=== PATIENT | male | born 1980 | race Caucasian/White ===

== ENCOUNTER 2017-04-25 06:42 | Emergency (ER) | payer BC ==
[~2017-04-25] VITALS: Ht 180.3 cm; Wt 127.0 kg
--- NOTE | ~2017-04-25 | CT4 ---
[facility] A Service of [facility] RADIOLOGY TEXT RESULTS PATIENT: BRANT ROGERS LOCATION: SED : [birth year] UNIT #: [id number] AGE: [address]: Ulysses Cox MD SEX: M ORDER DR: [id number] [place] [id number] E MR#: [id number] Acc #: [id number] NAME: BRANT ROGERS : 1980 SEX: M STUDY DATE/TIME: 04/25/2017 8:32 UNIT: SED ROOM: STUDY DESCRIPTION: CT Abd and Pelv Wo Cont Attending Physician: Ulysses Cox M.D. Ordering Physician: Dash Chang M.D. Primary Care Physician: Eden Seo M.D. MEDICAL IMAGING REPORT This report is preliminary unless electronic signature is present. EXAM Abdomen and pelvis CT without contrast. HISTORY Right flank pain starting at 03:00 a.m. History of stones. Also, history of chronic back pain. TECHNIQUE CT abdomen and pelvis performed without IV or oral contrast media using a urinary tract stone protocol. Lack of intravenous oral contrast media limits evaluation for pathology other than urinary tract calculus disease. This CT exam was performed with one or more of the following radiation dose reduction techniques: automatic exposure control, adjustment of mA and/or kV according to patient size, and iterative reconstruction. COMPARISON STUDIES Comparison study is from 08/12/2016. FINDINGS Evaluation lung bases shows small amount of dependent atelectasis. CT ABDOMEN: Unenhanced liver and gallbladder are unremarkable. Spleen and adrenal glands unremarkable. The pancreas is partially fatty replaced. There are postoperative changes to the stomach. Left kidney unremarkable without evidence for intrarenal calculus or hydronephrosis. Right kidney is mildly enlarged and there is perinephric stranding. There is moderate hydronephrosis and there is an obstructing calculus at the ureteropelvic junction. It measures about 5 mm in diameter. There is also non-obstructing calculus in the right kidney, about 6 mm diameter. This is located in the lower pole. [facility] A Service of [facility] RADIOLOGY TEXT RESULTS PATIENT: BRANT ROGERS LOCATION: SED : [birth year] UNIT #: [id number] AGE: [address]: Ulysses Cox MD SEX: M ORDER DR: Evaluation of the pelvis shows an unremarkable appearance to the urinary bladder. Visualized appendix is unremarkable. No free intraperitoneal air or obvious bowel obstruction. Noncontrast study is limited for pathology other than urinary tract calculus disease. I suspect there are some prominent lymph nodes in the mesentery and retroperitoneum but these are poorly evaluated without contrast and are nonspecific. Partly seen are prominent nodes in the groin area, largest on the left is 2 x 1.1 cm dimension, and clinical followup is suggested. Mild degenerative changes in the lower lumbar spine. IMPRESSION 1. There is an obstructing calculus seen at the right ureteropelvic junction, about 5 mm in dimension, with moderate right-sided hydronephrosis and stranding around the right kidney. There is a non-obstructing calculus in the right lower pole kidney, about 6 mm dimension. 2. Study is limited by lack of IV and oral contrast media. I suspect there is some nonspecific, prominent, possibly enlarged lymph nodes in the mesentery, retroperitoneal and inguinal region. Please correlate further clinically. This is best pursued with a contrast-enhanced study on a non-emergent basis. 3. Postoperative change of the stomach. Please correlate with history. Dictated by... Gillian Reese M.D. THIS IS AN ELECTRONICALLY VERIFIED REPORT Gillian Reese M.D. at 04/26/2017 3:51 PM SAC/pcl TD: 04/26/2017 12:59 JOB #: [id number] MEDICAL IMAGING REPORT Page 1 of 1
[~2017-04-25 06:42] MED LIST: ALLEGRA PO; ALLERGY SYR1 DIS.SYR IM; CLARITIN10 M3 PO; CLINDAMYCIN HC300 MG PO; DEPO-TESTOS200 MG/ML INJ; FLEXERIL10 M1 PO; MEDROL DOSEPAK4 MG PO; METHADONE HCL50 GM MC; METHADONE PO; NAPROSYN500 MG PO; NEURONTIN PO; ONDANSETRON ODT4 MG PO; OXYCODONE15 M1 PO; PHENTERMINE H37.5 M1 PO; PREDNISONE10 MG PO; ROBAXIN500 MG PO; VOLTAREN50 MG PO; WELLBUTRIN PO; ZOFRANODT SL; [UNRECOGNIZED DRUG - OTHER]
[2017-04-25] MEDS ORDERED: MULTI VITAMIN1 EACH (06:48)
[2017-04-25 07:49] LABS: BASOPHIL% 0.3 % (0-2.5); EOSINOPHIL# 0.1 X10e3 (0-0.7); EOSINOPHIL% 1.6 % (0.0-7.0); HEMATOCRIT 35.6 % (38.0-50.0); HEMOGLOBIN 11.7 gm/dL (13.0-16.0); LYMPHOCYTE# 1.5 X10e3 (1.0-3.5); LYMPHOCYTE% 17.5 % (17.0-45.0); MEAN CELL VOLUME 82.8 FL (83-96); MEAN CORPUSCULAR HEMOGLOBIN 27.3 PG (28-34); MEAN CORPUSCULAR HGB CONC 32.9 g/dL (30-36); MEAN PLATELET VOLUME 7.8 FL (6.5-11.5); MONOCYTE# 0.8 X10e3 (0-1.0); MONOCYTE% 9.5 % (3.0-12.0); NEUTROPHIL% 71.1 % (40-75); PLATELET COUNT 217 X10e3 (140-420); RED BLOOD COUNT 4.31 X10e (3.90-5.60); RED CELL DISTRIBUTION WIDTH 16.3 % (11.0-15.5); WHITE BLOOD COUNT 8.4 X10e3 (4.0-10.5)
[2017-04-25 07:51] LABS: DIFF IND NO
[2017-04-25 07:55] LABS: URINE SOURCE CLEAN CATCH
[2017-04-25 07:58] LABS: MICRO INDICATED? YES; URINE APPEARANCE CLEAR; URINE BILIRUBIN NEG (NEG); URINE BLOOD 3+ (NEG); URINE COLOR YELLOW; URINE GLUCOSE NEG (NORM); URINE KETONE NEG (NEG); URINE LEUKOCYTE ESTERASE NEG (NEG); URINE NITRATE NEG (NEG); URINE PH 6.5 (5-8); URINE PROTEIN NEG (NEG); URINE SPECIFIC GRAVITY 1.025 (1.003-1.035)
[2017-04-25 08:08] LABS: CULTURE INDICATED? NO; URINE BACTERIA NEG (NEG); URINE RBC 50-100 /[HPF] (0-2); URINE WBC 0-2 /[HPF] (0-5)
[2017-04-25 08:09] LABS: URINE CRYSTALS CALCIUM OXALATE /[HPF]; URINE MUCUS PRESENT
[2017-04-25 08:22] LABS: BILIRUBIN,TOTAL 0.7 mg/dL (0.2-2.0); CALCIUM SERUM 8.6 mg/dL (8.4-10.2); GLOM FILT RATE Estimated 95.7 mL/min (>60); POTASSIUM 3.4 mmol/L (3.5-5.1); PROTEIN TOTAL SERUM 6.8 g/dL (6.0-8.3)
== END 2017-04-25 10:00 | disposition home or self-care (01) ==
LOC: SED 06:42
DX: N13.2 Hydronephrosis with renal and ureteral calculous obstruction (principal); I10 Essential (primary) hypertension; Z79.899 Other long term (current) drug therapy
CPT/HCPCS: 36415; 74176; 80053; 81003; 85025; 96361; 96374; 96375; 99284; J1170; J1885; J2405

== ENCOUNTER 2017-05-30 09:53 | Emergency (ER) | payer BC ==
--- NOTE | ~2017-05-30 | CT4 ---
[facility] A Service of [facility] & [facility] RADIOLOGY TEXT RESULTS PATIENT: BRANT ROGERS LOCATION: SED : [birth year] UNIT #: [id number] AGE: [address]: Naila Navarrete MD SEX: M ORDER DR: [id number] [address] [id number] E MR#: [id number] Acc #: [id number] NAME: BRANT ROGERS : 1980 SEX: M STUDY DATE/TIME: 05/30/2017 10:51 UNIT: SED ROOM: STUDY DESCRIPTION: CT Abd and Pelv Wo Cont Attending Physician: Naila Navarrete M.D. Ordering Physician: Naila Navarrete M.D. Primary Care Physician: Eden Seo M.D. MEDICAL IMAGING REPORT This report is preliminary unless electronic signature is present. EXAM Abdomen and pelvis CT without contrast HISTORY Right-sided renal colic beginning early this morning. Recent passage of a kidney stone 1 week ago. Comparison examination 04/25/2017 TECHNIQUE Axial images were obtained without contrast. This CT exam was performed with one or more of the following radiation dose reduction techniques: automatic control, adjustment of mA and/or kV according to patient size, and iterative reconstruction. FINDINGS The liver, spleen and pancreas are normal in size. The left kidney remains normal. There is a nonobstructing 8 mm kidney stone in the lower pole of the robby of the right kidney unchanged from the previous scan. There is moderate right hydronephrosis and perinephric edema is seen on the right side. The right ureter is dilated into the mid pelvis where a 5 x 7 mm stone is noted. On the previous CT this stone was located in the upper ureter. IMPRESSION The upper ureteral stone seen on the previous scan of 04/25/2017 has moved to the level of the mid pelvis. There is moderate hydronephrosis and perinephric edema that appears similar to the previous scan in April. The stone has not passed completely and no bladder stones are seen. A nonobstructing lower pole kidney stone on the right is again noted and unchanged. Dictated by... Mike Serna M.D. [facility] A Service of [facility] RADIOLOGY TEXT RESULTS PATIENT: BRANT ROGERS LOCATION: [facility] [place] : [birth year] UNIT #: [id number] AGE: [address]: Naila Navarrete MD SEX: M ORDER DR: THIS IS AN ELECTRONICALLY VERIFIED REPORT Mike Serna M.D. at 05/31/2017 10:56 AM RLF/ricky TD: 05/31/2017 08:39 JOB #: [id number] MEDICAL IMAGING REPORT Page 1 of 1
[~2017-05-30 09:53] MED LIST changes: +MULTI VITAMIN1 EACH
[2017-05-30 10:56] LABS: BASOPHIL% 0.4 % (0-2.5); EOSINOPHIL# 0.1 X10e3 (0-0.7); EOSINOPHIL% 1.4 % (0.0-7.0); HEMATOCRIT 38.4 % (38.0-50.0); HEMOGLOBIN 12.7 gm/dL (13.0-16.0); LYMPHOCYTE# 1.3 X10e3 (1.0-3.5); LYMPHOCYTE% 17.2 % (17.0-45.0); MEAN CELL VOLUME 82.2 FL (83-96); MEAN CORPUSCULAR HEMOGLOBIN 27.2 PG (28-34); MEAN CORPUSCULAR HGB CONC 33.1 g/dL (30-36); MEAN PLATELET VOLUME 7.6 FL (6.5-11.5); MONOCYTE# 0.9 X10e3 (0-1.0); MONOCYTE% 11.6 % (3.0-12.0); NEUTROPHIL# 5.4 X10e3 (1.5-7.1); NEUTROPHIL% 69.4 % (40-75); PLATELET COUNT 215 X10e3 (140-420); RED BLOOD COUNT 4.68 X10e (3.90-5.60); RED CELL DISTRIBUTION WIDTH 15.8 % (11.0-15.5); WHITE BLOOD COUNT 7.7 X10e3 (4.0-10.5)
[2017-05-30 10:58] LABS: DIFF IND NO
[2017-05-30 11:14] LABS: ALBUMIN SERUM 4.1 g/dL (3.5-5.0); ALKALINE PHOSPHATASE 76 U/L (32-92); ALT (SGPT) 15 U/L (10-40); AMYLASE 14 U/L (0-46); AST (SGOT) 20 U/L (10-42); BILIRUBIN, DIRECT <0.1 mg/dL (0.0-0.2); BILIRUBIN,INDIRECT 0.6 mg/dL (0.0-0.9); BILIRUBIN,TOTAL 0.7 mg/dL (0.2-2.0); BLOOD UREA NITROGEN 9 mg/dL (9-23); CALCIUM SERUM 8.6 mg/dL (8.4-10.2); CARBON DIOXIDE 30 mmol/L (22-31); CHLORIDE 105 mmol/L (100-111); CREATININE SERUM 1.2 mg/dL (0.6-1.4); GLOM FILT RATE Estimated 76.8 mL/min (>60); GLUCOSE FASTING 101 mg/dL (70-110); LIPASE 26 U/L (22-51); POTASSIUM 3.6 mmol/L (3.5-5.1); PROTEIN TOTAL SERUM 6.7 g/dL (6.0-8.3); SODIUM 138 mmol/L (135-145)
[2017-05-30 12:15] LABS: URINE SOURCE CLEAN CATCH
[2017-05-30 12:24] LABS: URINE APPEARANCE CLEAR; URINE BILIRUBIN NEG (NEG); URINE BLOOD 1+ (NEG); URINE COLOR YELLOW; URINE GLUCOSE NEG (NORM); URINE KETONE NEG (NEG); URINE LEUKOCYTE ESTERASE NEG (NEG); URINE NITRATE NEG (NEG); URINE PH 6.5 (5-8); URINE PROTEIN NEG (NEG); URINE SPECIFIC GRAVITY 1.015 (1.003-1.035); URINE UROBILINOGEN 0.2 MG/DL (NORM)
[2017-05-30 12:25] LABS: MICRO INDICATED? YES
[2017-05-30 12:28] LABS: CULTURE INDICATED? NO; URINE BACTERIA NEG (NEG)
[2017-05-30 12:29] LABS: URINE AMORPHOUS SEDIMENT AMORP URATES; URINE CRYSTALS CALCIUM OXALATE /[HPF]; URINE GRANULAR CAST 0-2 /[HPF]; URINE HYALINE CAST 0-2 /[HPF]; URINE MUCUS PRESENT; URINE SQUAMOUS EPITHELIAL CELL OCCAS /[HPF]
== END 2017-05-30 13:49 | disposition home or self-care (01) ==
LOC: SED 09:53
PROVIDERS: Student in an Organized Health Care Education/Training Program
DX: N13.2 Hydronephrosis with renal and ureteral calculous obstruction (principal); Z87.442 Personal history of urinary calculi; Z88.5 Allergy status to narcotic agent; Z88.1 Allergy status to other antibiotic agents; Z79.899 Other long term (current) drug therapy
CPT/HCPCS: 36415; 74176; 80048; 80076; 81003; 82150; 83690; 85025; 96374; 96375; 96376; 99284; J1170; J1885; J2405